=== PATIENT | female | born 1960 | race Caucasian/White ===

== ENCOUNTER 2020-02-01 06:33 | Day surgery (SDC) | payer OTHER ==
[~2020-02-01] VITALS: Ht 147.3 cm; Wt 77.3 kg
[~2020-02-01 06:33] MED LIST: SODIUM CHLORIDE 0.9% 1,000 ML IV ONE; SODIUM CHLORIDE 0.9% 1,000 ML ONE
[2020-02-01] MEDS ORDERED: ATOR40TA28 PO (07:43)
[2020-02-01] MEDS ORDERED: LEVO137T24 PO (07:43)
[2020-02-01] MEDS ORDERED: CHOL100018 PO (07:43)
[2020-02-01] MEDS ORDERED: ASPI-728 PO (07:43)
[2020-02-01] MEDS ORDERED: EMPA10TA PO (07:43)
[2020-02-01 07:45] LABS: GLUCOMETER DEV NAME(LOC) SDS.; GLUCOSE,POINT OF CARE 109 MG/DL (70-110)
[2020-02-01] MEDS ORDERED: FentaNYL CITRATE-PF 100 MCG/2 ML VIAL ONE (08:07)
[2020-02-01] MEDS ORDERED: MIDAZOLAM HCL 2 MG/2 ML VIAL ONE (08:07)
[2020-02-01] MEDS ORDERED: MethylPREDNISolone SOD SUCC 125 MG/2 ML VIAL IVP ONE (08:30)
[2020-02-01] MEDS ORDERED: OXYGEN THERAPY IH SCH (20:00)
== END 2020-02-01 09:45 | disposition home or self-care (01) ==
LOC: SURGERY 06:33
PROVIDERS: ATTEND Internal Medicine Critical Care Medicine
DX: R05 Cough (principal); Z53.8 Procedure and treatment not carried out for other reasons; R91.1 Solitary pulmonary nodule; K80.20 Calculus of gallbladder without cholecystitis without obstruction
CPT/HCPCS: 70490; 71250; 82962; 93005; J7030; J2250; J3010

== ENCOUNTER → 2020-02-05 | Day surgery (SDC) | payer OTHER ==
[~2020-02-05] VITALS: Ht 149.9 cm; Wt 77.3 kg
[~2020-02-05] MED LIST changes: +ALBUTEROL SULFATE 2.5 MG/0.5 ML NEB SOLUTION NEB ONE; +ASPI-728 PO; +ATOR40TA28 PO; +BENZOCAINE 20% 50 MCG/SPRAY 57 GM ONE; +CHOL100018 PO; +EMPA10TA PO; +FentaNYL CITRATE-PF 100 MCG/2 ML VIAL ONE; +LEVO137T24 PO; +LIDOCAINE 2% 30 ML JELLY ONE; +MIDAZOLAM HCL 2 MG/2 ML VIAL ONE; +MethylPREDNISolone SOD SUCC 125 MG/2 ML VIAL IVP ONE; +MethylPREDNISolone SOD SUCC 125 MG/2 ML VIAL ONE; +OXYGEN THERAPY IH SCH
[2020-02-05 07:32] LABS: GLUCOMETER DEV NAME(LOC) SDS.; GLUCOSE,POINT OF CARE 103 MG/DL (70-110)
== END | disposition home or self-care (01) ==
LOC: SURGERY 06:14
PROVIDERS: ATTEND Internal Medicine Critical Care Medicine
DX: J38.4 Edema of larynx (principal); B37.0 Candidal stomatitis; G47.30 Sleep apnea, unspecified; E78.00 Pure hypercholesterolemia, unspecified; I48.91 Unspecified atrial fibrillation; Z98.890 Other specified postprocedural states; Z90.49 Acquired absence of other specified parts of digestive tract; Z85.850 Personal history of malignant neoplasm of thyroid
CPT/HCPCS: 31623; 31624; 71045; 82962; 87015; 87070; 87077; 87101; 87186; 87205; 87206; 87220; 88108; 88312; J2250; J2930; J3010; J7030; J7613

== ENCOUNTER 2022-04-06 05:38 | Day surgery (SDC) | payer OTHER ==
[~2022-04-06] VITALS: Ht 142.2 cm; Wt 83.1 kg
[~2022-04-06 05:38] MED LIST changes: -ALBUTEROL SULFATE 2.5 MG/0.5 ML NEB SOLUTION NEB ONE; +ASPI-1450 PO; -ASPI-728 PO; -BENZOCAINE 20% 50 MCG/SPRAY 57 GM ONE; -CHOL100018 PO; +CHOL25TA4 PO; -EMPA10TA PO; +EMPA10TA3 PO; -FentaNYL CITRATE-PF 100 MCG/2 ML VIAL ONE; -LIDOCAINE 2% 30 ML JELLY ONE; -MIDAZOLAM HCL 2 MG/2 ML VIAL ONE; -MethylPREDNISolone SOD SUCC 125 MG/2 ML VIAL IVP ONE; -MethylPREDNISolone SOD SUCC 125 MG/2 ML VIAL ONE; -OXYGEN THERAPY IH SCH; -SODIUM CHLORIDE 0.9% 1,000 ML ONE
[2022-04-06] MEDS ORDERED: LIDOCAINE 2% 11 ML JELLY TP ONE (05:39)
[2022-04-06] MEDS ORDERED: ALBUTEROL SULFATE 2.5 MG/0.5 ML NEB SOLUTION NEB ONE (05:39)
[2022-04-06] MEDS ORDERED: BENZOCAINE 20% 50 MCG/SPRAY 57 GM TP ONE (05:39)
[2022-04-06] MEDS ORDERED: LIDOCAINE 4% 50 ML SOLUTION TP ONE (05:39)
[2022-04-06] MEDS ORDERED: NYST30CR9 TP (06:41)
[2022-04-06] MEDS ORDERED: EMPA25TA3 PO (06:41)
[2022-04-06] MEDS ORDERED: MONT-40 PO (06:41)
[2022-04-06] MEDS ORDERED: DULO-114 PO (06:41)
[2022-04-06] MEDS ORDERED: GABA-1181 PO (06:41)
[2022-04-06 06:44] LABS: COVID AG,FIA SOURCE NASAL SWAB
[2022-04-06] MEDS ORDERED: MIDAZOLAM HCL 5 MG/ML VIAL ONE ×2 (07:56→07:57)
[2022-04-06] MEDS ORDERED: EPINEPHrine 1:10,000 [1 MG/10 ML] SYRINGE ONE (07:56)
[2022-04-06] MEDS ORDERED: FentaNYL CITRATE PF 100 MCG/2 ML VIAL ONE (07:58)
[2022-04-06 08:06] LABS: GLUCOMETER DEV NAME(LOC) SDS.; GLUCOSE,POINT OF CARE 119 MG/DL (70-110)
[2022-04-06] MEDS ORDERED: MethylPREDNISolone SOD SUCC 125 MG/2 ML VIAL ONE (08:56)
[2022-04-06] MEDS ORDERED: MethylPREDNISolone SOD SUCC 125 MG/2 ML VIAL IVP ONE (09:15)
[2022-04-06] MEDS ORDERED: OXYGEN THERAPY IH SCH (20:00)
== END 2022-04-06 11:20 | disposition home or self-care (01) ==
LOC: SURGERY 05:38
PROVIDERS: ATTEND Internal Medicine Critical Care Medicine
DX: J38.4 Edema of larynx (principal); B37.0 Candidal stomatitis; Z79.899 Other long term (current) drug therapy; Z20.822 Contact with and (suspected) exposure to COVID-19; Z90.49 Acquired absence of other specified parts of digestive tract; Z87.442 Personal history of urinary calculi; Z98.890 Other specified postprocedural states; Z88.0 Allergy status to penicillin
CPT/HCPCS: 31623; 82962; 87101; 87220; 87070; 87186; 31624; 94640; 71045; 87015; 87426; 87206; J3010; J2930; J2250; Q9967; C9803; J0171; J7613; Z7610